=== PATIENT | female | born 2000 | race Caucasian/White ===

== ENCOUNTER 2022-10-24 13:02 | Outpatient (CLI) ==
[~2022-10-24] VITALS: Ht 175.3 cm; Wt 101.4 kg
[2022-10-24 13:21] VITALS: BP 116/79
[2022-10-24] MEDS ORDERED: PRENTAB9 PO (13:25)
[2022-10-24] MEDS ORDERED: NOXI1TAB PO (13:25)
[2022-10-24] MEDS ORDERED: CELE10TA PO (13:26)
[2022-10-24] MEDS ORDERED: HOME MED LIST COMPLETE! XX SCH (16:55)
== END 2022-10-24 16:15 | disposition home or self-care (01) ==
LOC: M LDO 13:02
PROVIDERS: ATTEND Registered Nurse
DX: O9A.213 Injury, poisoning and certain other consequences of external causes complicating pregnancy, third trimester (principal); Z3A.35 35 weeks gestation of pregnancy; W01.0XXA Fall on same level from slipping, tripping and stumbling without subsequent striking against object, initial encounter; Y92.9 Unspecified place or not applicable
CPT/HCPCS: 59025; G0463

== ENCOUNTER 2022-11-22 07:35 | Inpatient (IN) | payer OTHER ==
[2022-11-22] VITALS (38 sets, daily range): BP systolic 83–185; BP diastolic 51–112
[~2022-11-22] VITALS: Ht 175.3 cm; Wt 102.4 kg
[~2022-11-22 07:35] MED LIST: CELE10TA PO; NOXI1TAB PO; PRENTAB9 PO
[2022-11-22] MEDS ORDERED: HOME MED LIST COMPLETE! XX SCH (08:25)
[2022-11-22] MEDS ORDERED: LACTATED RINGER'S 1000 ML IV STA (08:48)
[2022-11-22] MEDS ORDERED: CARBOPROST TROMETHAMINE 250 MCG/ML AMP IM PRN (08:50)
[2022-11-22] MEDS ORDERED: METHYLERGONOVINE MALEATE 0.2MG/ML 1ML VIAL IM PRN (08:50)
[2022-11-22] MEDS ORDERED: TRANEXAMIC ACID INJection 1,000 MG in NS 100 ML IV PRN (08:50)
[2022-11-22] MEDS ORDERED: LIDOCAINE 1% MDV 20ML VIAL INFIL PRN (08:50)
[2022-11-22] MEDS ORDERED: OXYTOCIN DRIP 30 UNITS in IV 1 EA IV PRN ×4 (08:50)
[2022-11-22] MEDS ORDERED: LR 1,000 ML IV SCH ×2 (08:50→09:55)
[2022-11-22 10:27] LABS: HEMATOCRIT 39.9 % (36.0-47.0); HEMOGLOBIN 13.4 g/dl (12.0-15.5); MEAN CORPUSCULAR HEMOGLOBIN 31.3 pg (27.0-33.0); MEAN CORPUSCULAR HGB CONC 33.6 g/dl (32.0-36.5); MEAN CORPUSCULAR VOLUME 93.2 fl (80.0-96.0); PLATELET COUNT, AUTOMATED 196 10^3/uL (150-450); RED BLOOD COUNT 4.28 10^6/uL (4.00-5.40); WHITE BLOOD COUNT 7.9 10^3/uL (4.0-10.0)
[2022-11-22] MEDS: OXYTOCIN DRIP 30 UNITS in IV 1 EA IV SCH ×2 (10:32→20:48)
[2022-11-22 12:02] LABS: URIC ACID 4.2 MG/DL (3.1-7.8)
[2022-11-22 12:04] LABS: LDH LACTATE DEHYDROGENASE 163 U/L (120-246)
[2022-11-22 12:05] LABS: ALT/SGPT 15 U/L (7.0-40); AST/SGOT 12 U/L (<34); BILIRUBIN,TOTAL 0.5 MG/DL (0.3-1.2); CREATININE FOR GFR 0.47 MG/DL (0.55-1.30); GLOMERULAR FILTRATION RATE > 60.0 (>60)
[2022-11-22 16:17] LABS: HEPATITIS B SURFACE ANTIGEN NEGATIVE (NEGATIVE)
[2022-11-22] MEDS ORDERED: ePHEDrine SULFATE 25 MG/5 ML(5MG/ML) SYRINGE IVP PRN (19:15)
[2022-11-22] MEDS ORDERED: LR 500 ML IV PRN (19:15)
[2022-11-22] MEDS ORDERED: diphenhydrAMINE 50MG/ML VIAL IV PRN (19:15)
[2022-11-22] MEDS ORDERED: NALOXONE INJ 0.4MG/1ML VIAL IV PRN (19:15)
[2022-11-22] MEDS ORDERED: EPIDURAL/PCA KEYS XX PRN (19:15)
[2022-11-22] MEDS: FENTANYL/ROPIVACAINE/NACL BAG 100 ML EPIDURAL SCH ×2 (19:56→23:39)
[2022-11-22] MEDS ORDERED: DOCUSATE SODIUM 100MG CAPSULE PO PRN (20:55)
[2022-11-22] MEDS ORDERED: ACETAMINOPHEN 500 MG TAB PO PRN (20:55)
[2022-11-22] MEDS ORDERED: METHYLERGONOVINE MALEATE 0.2 MG TAB PO PRN (20:55)
[2022-11-22] MEDS ORDERED: IBUPROFEN 600MG TAB PO PRN (20:55)
[2022-11-22] MEDS ORDERED: ACETAMINOPHEN TAB 650MG DOSE (2X325MG) PO PRN (20:55)
[2022-11-22] MEDS ORDERED: DIBUCAINE 1% OINTMENT 30GM TOP PRN (20:55)
[2022-11-22] MEDS ORDERED: OXYTOCIN DRIP 30 UNITS in IV 1 EA IV SCH ×4 (20:55)
[2022-11-22] MEDS ORDERED: RHOGAM 300MCG (1500IU) INJ IM SCH (20:55)
[2022-11-22] MEDS ORDERED: ANUSOL HC CREAM 30GM TOP PRN (20:55)
[2022-11-23] MEDS: FENTANYL/ROPIVACAINE/NACL BAG 100 ML EPIDURAL SCH (04:18)
[2022-11-23] MEDS: IBUPROFEN 800 MG TAB PO PRN ×2 (04:18→12:37)
[2022-11-23 06:00] VITALS: BP 115/69
[2022-11-23 06:33] LABS: HEMOGLOBIN 11.5 g/dl (12.0-15.5); MEAN CORPUSCULAR HEMOGLOBIN 31.3 pg (27.0-33.0); MEAN CORPUSCULAR HGB CONC 33.8 g/dl (32.0-36.5); MEAN CORPUSCULAR VOLUME 92.6 fl (80.0-96.0); PLATELET COUNT, AUTOMATED 162 10^3/uL (150-450); RED BLOOD COUNT 3.67 10^6/uL (4.00-5.40)
[2022-11-23] MEDS: PRENATAL VITAMINS CHEWABLE TABLET PO SCH (07:35)
[2022-11-23 18:00] VITALS: BP 122/63
[2022-11-23] MEDS: CitaloPRAM (CeleXA) 10 MG TABLET PO SCH (18:35)
[2022-11-23 19:30] VITALS: BP 122/63
[2022-11-24 06:00] VITALS: BP 114/66
[2022-11-24] MEDS ORDERED: IBUP-1022 PO (08:30)
[2022-11-24] MEDS ORDERED: COLA100C5 PO (08:30)
[2022-11-24] MEDS ORDERED: ACET1TAB55 PO (08:30)
[2022-11-24] MEDS ORDERED: MEASLES,MUMPS,RUBELLA VACCINE INJ (MMR-II) SC.IMMUN ONE (09:00)
[2022-11-24] MEDS: PRENATAL VITAMINS CHEWABLE TABLET PO SCH (10:01)
[2022-11-24] MEDS: CitaloPRAM (CeleXA) 10 MG TABLET PO SCH (10:01)
== END 2022-11-24 11:15 | disposition home or self-care (01) | DRG 807 ==
LOC: M LDI 07:35 → M OBS 23:00
PROVIDERS: ADMIT Advanced Practice Midwife; ATTEND Obstetrics & Gynecology
PROC: 10E0XZZ Delivery of Products of Conception, External Approach (ICD-10-PCS; principal; 2022-11-22)
PROC: 3E033VJ Introduction of Other Hormone into Peripheral Vein, Percutaneous Approach (ICD-10-PCS; 2022-11-22)
DX: O40.3XX0 Polyhydramnios, third trimester, not applicable or unspecified (principal); Z37.0 Single live birth; Z3A.39 39 weeks gestation of pregnancy; O99.214 Obesity complicating childbirth; E66.9 Obesity, unspecified; O99.344 Other mental disorders complicating childbirth; F32.A Depression, unspecified; O69.1XX0 Labor and delivery complicated by cord around neck, with compression, not applicable or unspecified

== ENCOUNTER 2023-02-12 08:47 | Day surgery (SDC) | payer OTHER ==
[~2023-02-12] VITALS: Ht 175.3 cm; Wt 98.9 kg
[~2023-02-12 08:47] MED LIST changes: +ACET1TAB55 PO; +ACETAMINOPHEN *IV* 1,000 MG IV ONE; +BUSP10TA PO; +COLA100C5 PO; +IBUP-1022 PO; +JUNE1.5T
[2023-02-12] MEDS ORDERED: fentaNYL 100 MCG/2 ML INJECTION As Ordered ONE ×2 (09:24→12:22)
[2023-02-12] MEDS ORDERED: LIDOCAINE 2% 100MG/5ML SDV (FOR ANES.) As Ordered ONE (09:24)
[2023-02-12] MEDS ORDERED: propofoL 200 MG/20 ML VIAL As Ordered ONE (09:24)
[2023-02-12] MEDS ORDERED: ROCURONIUM BROMIDE 50MG/5ML VIAL As Ordered ONE (09:24)
[2023-02-12] MEDS ORDERED: MIDAZOLAM INJ 2MG/2ML VIAL As Ordered ONE (09:25)
[2023-02-12] MEDS ORDERED: LR 1,000 ML IV SCH ×2 (09:30→11:35)
[2023-02-12] MEDS ORDERED: primrose oil PA (09:31)
[2023-02-12] MEDS ORDERED: fentaNYL 100 MCG/2 ML INJECTION IV PRN (11:35)
[2023-02-12] MEDS ORDERED: ONDANSETRON 4MG 2ML VIAL IV PRN (11:35)
[2023-02-12] MEDS ORDERED: METOCLOPRAMIDE INJ 10MG/2ML VIAL IV PRN (11:35)
[2023-02-12] MEDS ORDERED: oxyCODONE 5MG TAB PO PRN (11:35)
[2023-02-12] MEDS ORDERED: HYDROMORPHONE HCL 0.5 MG/ 0.5 ML SYRINGE IV PRN (11:35)
[2023-02-12] MEDS ORDERED: MEPERIDINE 25 MG/ML 1ML VIAL As Ordered ONE (11:59)
[2023-02-12] MEDS: MEPERIDINE 25 MG/ML 1ML VIAL IV PRN ×2 (12:00→12:07)
[2023-02-12] MEDS ORDERED: ONDANSETRON 4MG 2ML VIAL As Ordered ONE ×2 (12:25→12:26)
[2023-02-12] MEDS ORDERED: SUGAMMADEX SODIUM 500 MG/5 ML VIAL (BRIDION) As Ordered ONE (12:26)
[2023-02-12] MEDS ORDERED: KETOROLAC 60MG 2ML VIAL As Ordered ONE (12:26)
[2023-02-12] MEDS ORDERED: ACETAMINOPHEN 1000MG 100ML IV BAG As Ordered ONE (12:27)
[2023-02-12 12:43] VITALS: BP 132/79; TEMP 97.7; O2SAT 95
== END 2023-02-12 13:19 | disposition home or self-care (01) ==
LOC: M SDC 08:47
PROVIDERS: ATTEND Obstetrics & Gynecology
DX: Z30.2 Encounter for sterilization (principal); F43.23 Adjustment disorder with mixed anxiety and depressed mood; F17.200 Nicotine dependence, unspecified, uncomplicated; Z79.899 Other long term (current) drug therapy; E66.8 Other obesity
CPT/HCPCS: 58661; 81025; 88302; J0131; J0665; J1100; J1885; J2175; J2250; J2405; J3010